=== PATIENT | male | born 1940 | race Hispanic/Latino ===

== ENCOUNTER 2021-07-04 00:11 | Emergency (ER) | payer MEDICARE, OTHER ==
[~2021-07-04] VITALS: Ht 167.6 cm; Wt 112.0 kg
[2021-07-04 01:16] LABS: BASOPHILS % (AUTO) 0.6 % (0.0-5.0); EOSINOPHILS % (AUTO) 3.1 % (0.0-8.0); HEMATOCRIT 44.4 % (42-54); LYMPHOCYTES % (AUTO) 13.6 % (21.0-51.0); MEAN CORPUSCULAR HEMOGLOBIN 32.4 pg (27.0-33.0); MEAN CORPUSCULAR HGB CONC 32.2 g/dL (32.0-36.0); MEAN CORPUSCULAR VOLUME 100.5 fL (79-99); MONOCYTES % (AUTO) 8.5 % (3.0-13.0); NEUTROPHILS % (AUTO) 73.8 % (40.0-77.0); PLATELET COUNT (AUTO) 160 K/uL (130-400); RED BLOOD CELL COUNT(AUTO) 4.42 MIL/uL (4.50-6.20); RED CELL DISTRIBUTION WIDTH 12.6 % (11.0-15.5)
[2021-07-04 01:26] LABS: CREATININE 1.3 mg/dL (0.5-1.5); POTASSIUM 4.3 mmol/L (3.5-5.1)
[2021-07-04 01:30] LABS: ALBUMIN 3.6 g/dL (3.5-5.0); BILIRUBIN,TOTAL 0.6 mg/dL (0.2-1.0); TOTAL PROTEIN, SERUM 7.8 g/dL (6.0-8.3)
[2021-07-04] MEDS ORDERED: CEFTRIAXONE 1G VIAL ONE (01:57)
[2021-07-04] MEDS ORDERED: SOLU-MEDROL 125MG VIAL IVP ONE (02:00)
[2021-07-04] MEDS ORDERED: CEFTRIAXONE 1G VIAL IVP ONE (02:00)
[2021-07-04 02:43] VITALS: BP 125/67
[2021-07-04] MEDS ORDERED: LEVO750T46 PO (02:59)
[2021-07-04] MEDS ORDERED: AZITHROMYCIN 250 MG TABLET PO ONE (03:00)
== END 2021-07-04 03:47 | disposition home or self-care (01) ==
LOC: EDH 00:11
DX: J44.1 Chronic obstructive pulmonary disease with (acute) exacerbation (principal); J18.9 Pneumonia, unspecified organism; I10 Essential (primary) hypertension; E11.40 Type 2 diabetes mellitus with diabetic neuropathy, unspecified
CPT/HCPCS: 36415; 71045; 80053; 84484; 85025; 96374; 96375; 99284; J0696; J2930

== ENCOUNTER 2024-02-08 20:32 | Emergency (ER) | payer OTHER ==
[~2024-02-08] VITALS: Ht 165.1 cm; Wt 99.8 kg
[~2024-02-08 20:32] MED LIST: LEVO750T68 PO
[2024-02-08 20:33] VITALS: BP 101/68; PULSE 86; RESP 18
[2024-02-08 21:22] LABS: BASOPHILS # (AUTO) 0.05 K/uL (0.00-0.20); BASOPHILS % (AUTO) 0.7 % (0.0-5.0); EOSINOPHILS # (AUTO) 0.43 K/uL (0.00-0.70); HEMATOCRIT 48.7 % (42-54); IMMATURE GRANULOCYTE ABSOLUTE 0.02 K/uL (0-1); LYMPHOCYTES # (AUTO) 1.4 K/uL (1.0-4.8); LYMPHOCYTES % (AUTO) 19.9 % (21.0-51.0); MEAN CORPUSCULAR HEMOGLOBIN 33.3 pg (27.0-33.0); MEAN CORPUSCULAR HGB CONC 33.3 g/dL (32.0-36.0); MONOCYTES # (AUTO) 0.6 K/uL (0.1-1.0); MONOCYTES % (AUTO) 8.8 % (3.0-13.0); NEUTROPHILS # (AUTO) 4.6 K/uL (1.8-7.7); NEUTROPHILS % (AUTO) 64.3 % (40.0-77.0); PLATELET COUNT (AUTO) 156 K/uL (130-400); RED BLOOD CELL COUNT(AUTO) 4.87 MIL/uL (4.50-6.20); RED CELL DISTRIBUTION WIDTH 12.5 % (11.0-15.5); WHITE BLOOD COUNT (AUTO) 7.2 K/uL (4.8-10.8)
[2024-02-08 21:36] LABS: INR 1.06 (0.85-1.15); PROTHROMBIN TIME 12.4 SEC (9.6-11.6)
[2024-02-08 21:38] LABS: PARTIAL THROMBOPLASTIN TIME 30.7 SEC (26.3-35.5)
[2024-02-08 21:45] LABS: CREATININE 1.4 mg/dL (0.5-1.3); POTASSIUM 3.9 mmol/L (3.5-5.1)
[2024-02-08 21:49] LABS: ALBUMIN 3.8 g/dL (3.5-5.0); BILIRUBIN,TOTAL 0.6 mg/dL (0.2-1.0); MAGNESIUM 1.6 mg/dL (1.80-2.40); TOTAL PROTEIN, SERUM 7.8 g/dL (6.0-8.3)
[2024-02-08 21:52] LABS: B-TYPE NATRIURETIC PEPTIDE 43 pg/mL (0-100)
== END 2024-02-09 01:14 | disposition left against medical advice (07) ==
LOC: EDH 20:32
DX: I48.91 Unspecified atrial fibrillation (principal); J44.9 Chronic obstructive pulmonary disease, unspecified; E11.9 Type 2 diabetes mellitus without complications; I10 Essential (primary) hypertension
CPT/HCPCS: 36415; 71045; 80053; 82550; 83735; 83880; 84484; 85025; 85610; 85730; 93005

== ENCOUNTER 2024-06-25 11:07 | Emergency (ER) | payer OTHER ==
[~2024-06-25] VITALS: Ht 165.1 cm; Wt 98.4 kg
[2024-06-25 12:15] LABS: BASOPHILS # (AUTO) 0.03 K/uL (0.00-0.20); BASOPHILS % (AUTO) 0.3 % (0.0-5.0); EOSINOPHILS # (AUTO) 0.07 K/uL (0.00-0.70); EOSINOPHILS % (AUTO) 0.8 % (0.0-8.0); HEMATOCRIT 48.3 % (42-54); IMMATURE GRANULOCYTE ABSOLUTE 0.02 K/uL (0-1); LYMPHOCYTES # (AUTO) 0.3 K/uL (1.0-4.8); LYMPHOCYTES % (AUTO) 3.5 % (21.0-51.0); MEAN CORPUSCULAR HEMOGLOBIN 32.1 pg (27.0-33.0); MEAN CORPUSCULAR HGB CONC 32.7 g/dL (32.0-36.0); MEAN CORPUSCULAR VOLUME 98.2 fL (79-99); MONOCYTES # (AUTO) 0.4 K/uL (0.1-1.0); NEUTROPHILS # (AUTO) 8.5 K/uL (1.8-7.7); NEUTROPHILS % (AUTO) 91.2 % (40.0-77.0); PLATELET COUNT (AUTO) 151 K/uL (130-400); RED BLOOD CELL COUNT(AUTO) 4.92 MIL/uL (4.50-6.20); RED CELL DISTRIBUTION WIDTH 12.4 % (11.0-15.5); WHITE BLOOD COUNT (AUTO) 9.3 K/uL (4.8-10.8)
[2024-06-25 12:19] LABS: CREATININE 1.3 mg/dL (0.5-1.3); MAGNESIUM 1.5 mg/dL (1.80-2.40); POTASSIUM 4.2 mmol/L (3.5-5.1)
[2024-06-25 12:38] LABS: B-TYPE NATRIURETIC PEPTIDE 43 pg/mL (0-100)
[2024-06-25] MEDS ORDERED: MAGN300C PO (14:26)
[2024-06-25] MEDS: MAGNESIUM OXIDE 400 MG TABLET ONE (14:46)
[2024-06-25] MEDS: MAGNESIUM OXIDE 400 MG TABLET PO ONE (14:46)
[2024-06-25 14:52] VITALS: BP 123/76; PULSE 93; RESP 20; TEMP 97.9; O2SAT 98
== END 2024-06-25 14:53 | disposition home or self-care (01) ==
LOC: EDH 11:07
DX: I48.91 Unspecified atrial fibrillation (principal); E83.42 Hypomagnesemia; E86.0 Dehydration; E11.65 Type 2 diabetes mellitus with hyperglycemia; J44.9 Chronic obstructive pulmonary disease, unspecified; E11.40 Type 2 diabetes mellitus with diabetic neuropathy, unspecified; I10 Essential (primary) hypertension
CPT/HCPCS: 36415; 71045; 80048; 83735; 83880; 84484; 85025; 93005

== ENCOUNTER 2024-08-22 08:12 | Day surgery (SDC) | payer OTHER ==
[2024-08-20 13:44] LABS: BASOPHILS # (AUTO) 0.05 K/uL (0.00-0.20); BASOPHILS % (AUTO) 0.6 % (0.0-5.0); EOSINOPHILS % (AUTO) 3.7 % (0.0-8.0); HEMATOCRIT 41.3 % (42-54); IMMATURE GRANULOCYTE ABSOLUTE 0.05 K/uL (0-1); LYMPHOCYTES # (AUTO) 1.7 K/uL (1.0-4.8); LYMPHOCYTES % (AUTO) 20.6 % (21.0-51.0); MEAN CORPUSCULAR HEMOGLOBIN 33.2 pg (27.0-33.0); MEAN CORPUSCULAR HGB CONC 32.4 g/dL (32.0-36.0); MEAN CORPUSCULAR VOLUME 102.2 fL (79-99); MONOCYTES # (AUTO) 0.6 K/uL (0.1-1.0); MONOCYTES % (AUTO) 7.7 % (3.0-13.0); NEUTROPHILS # (AUTO) 5.4 K/uL (1.8-7.7); NEUTROPHILS % (AUTO) 66.8 % (40.0-77.0); PLATELET COUNT (AUTO) 206 K/uL (130-400); RED BLOOD CELL COUNT(AUTO) 4.04 MIL/uL (4.50-6.20); RED CELL DISTRIBUTION WIDTH 13.2 % (11.0-15.5); WHITE BLOOD COUNT (AUTO) 8.1 K/uL (4.8-10.8)
[2024-08-20 13:52] LABS: CREATININE 1.4 mg/dL (0.5-1.3); POTASSIUM 4.7 mmol/L (3.5-5.1)
[2024-08-20 13:53] LABS: INR 1.37 (0.85-1.15); PROTHROMBIN TIME 14.5 SEC (9.6-11.6)
[2024-08-20 13:56] VITALS: BP 127/59; PULSE 74; RESP 15; TEMP 97.2
[2024-08-20 14:20] LABS: ADD UA MICROSCOPIC YES; APPEARANCE,URINE CLEAR (CLEAR); BILIRUBIN,URINE NEGATIVE (NEGATIVE); COLOR,URINE LIGHT-YELLOW (YELLOW); GLUCOSE, URINE (UA) >=1000 mg/dL (NEGATIVE); KETONES,URINE NEGATIVE (NEGATIVE); LEUKOCYTE ESTERASE ,URINE NEGATIVE Leu/uL (NEGATIVE); NITRATE,URINE NEGATIVE (NEGATIVE); OCCULT BLOOD,URINE NEGATIVE (NEGATIVE); PROTEIN,URINE NEGATIVE (NEGATIVE); UROBILINOGEN,URINE 0.2 mg/dL (0.2-1.0)
[2024-08-20 14:23] LABS: B-TYPE NATRIURETIC PEPTIDE 105 pg/mL (0-100)
[2024-08-20 14:37] LABS: MUCUS,URINE RARE LPF (None Seen); RBC,URINE 0-1 /HPF (0-1); SQUAMOUS EPITHELIAL CELL,UR RARE /HPF (0-2)
[~2024-08-22] VITALS: Ht 165.1 cm; Wt 100.6 kg
[2024-08-22] VITALS (7 sets, daily range): BP systolic 87–139; BP diastolic 47–79; PULSE 53–72; RESP 14–16; TEMP 97.5–97.8
[~2024-08-22 08:12] MED LIST changes: +ALBUHFA IH; +ASCO500T20 PO; +ATOR40TA71 PO; +BETA1TAB18 PO; +CHOL100020 PO; +DRON400T7 PO; +DULO60CA64 PO; +EMPA25TA PO; +FLUT1BLS9 IH; +INSU100I47 SQ; +INSU3INS3 SQ; -LEVO750T68 PO; +LORA10TA7 PO; +LOSA100T59 PO; +MEMA10TA21 PO; +METO50TA18 PO; +RIVA20TA PO; +ZINC220T4 PO
--- NOTE | 2024-08-22 09:28 | EKG ---
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 : 1940 Requested By: RASHIDA ACOSTA Order Number: [id number] Reading MD: Ananda Wild Measurements Intervals [place] Rate: 56 P: 0 CO: 0 QRS: -64 QRSD: 111 T: 14 QT: 476 QTc: 462 Interpretive Statements Atrial fibrillation Left anterior fascicular block Low voltage, extremity and precordial leads Consider anterior infarct Compared to ECG 06/25/2024 12:06:23 Left anterior fascicular block now present Low QRS voltage now present Myocardial infarct finding still present Electronically Signed On 08-22-2024 16:15:55 COOL ROOFING INSTALLER by Ananda Wild Please click the below link to view image of tracing.
[2024-08-22] MEDS ORDERED: proPOFol 10 MG/ML 20ML VIAL IV ONE (09:49)
--- NOTE | 2024-08-22 09:52 | NUR ---
CALLED SENIOR INTEGRATION ARCHITECT TO RELAY MESSAGE THAT PT IS BRADYCARDIC AND BLOOD PRESSURE IS RUNNING IN THE 80'S 90'S SYSTOLIC. DR. ACOSTA STATED HE WILL COME SEE THE PT AND ASSESS.
--- NOTE | 2024-08-22 10:15 | NUR ---
DR. ACOSTA CAME TO ASSESS PT AND SPEAK WITH HIM. DR. ACOSTA SPOKE WITH BARRETT MIDDLETON ABOUT PT BEING BRADYCARDIC AND HYPOTENSIVE. ORDER FOR NS 500 ML BOLUS GIVEN TO ME. PT DENIES ANY COMPLAINTS.
[2024-08-22] MEDS: 0.9%NACL 1000ML 1,000 ML IV ONE (10:59)
--- NOTE | 2024-08-22 11:28 | NUR ---
[address] ACOSTA
--- NOTE | 2024-08-22 11:31 | NUR ---
DR. ACOSTA FINISHED WITH ARVIND AT THIS TIME VSS NAD.
--- NOTE | 2024-08-22 11:32 | NUR ---
PT SYNCHRONIZED CARDIOVERTED [address] DAVE WELSH VSBen PT REMAINS IN ATRIAL FIBRILLATION WITH SLOW RESPONSE.
--- NOTE | 2024-08-22 11:33 | NUR ---
PT SYNCHRONIZED CARDIOVERTED [address]ND [address]. DAVE WELSH. PT CONTINUES TO REMAIN IN ATRIAL FIBRILLATION WITH SLOW VENTRICULAR RESPONSE.
--- NOTE | 2024-08-22 11:34 | NUR ---
PT SYNCHRONIZED CARDIOVERTED FOR THE 3RD TIME AT [address] ACOSTA NAD VSS PT REMAINS IN ATRIAL FIBRILLATOIN WITH SLOW VENTRICULAR RESPONSE. SPOUSE IN TO SPEAK WITH DR. ACOSTA ABOUT FURTHER PLAN FOR ATRIAL FIBRILLATION
--- NOTE | 2024-08-22 14:38 | NUR ---
1126 SEDATION STARTED BY SPANISH MOSS PICKER.
--- NOTE | 2024-08-23 14:25 | EKG ---
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
[2024-09-08] MEDS ORDERED: ASCO500T20 PO (23:33)
[2024-09-08] MEDS ORDERED: METF-444 PO (23:33)
[2024-09-08] MEDS ORDERED: ZINC220T4 PO (23:33)
[2024-09-08] MEDS ORDERED: DULO60CA64 PO (23:33)
[2024-09-08] MEDS ORDERED: MEMA10TA21 PO (23:33)
[2024-09-08] MEDS ORDERED: LORA10TA7 PO (23:33)
[2024-09-08] MEDS ORDERED: ATOR10 PO (23:33)
[2024-09-08] MEDS ORDERED: AMIO200T68 PO (23:33)
[2024-09-08] MEDS ORDERED: BETA1TAB18 PO (23:33)
[2024-09-08] MEDS ORDERED: BENZ-39 PO (23:33)
[2024-09-08] MEDS ORDERED: ERGO400C PO (23:33)
[2024-09-08] MEDS ORDERED: INSU3INS3 SQ (23:35)
[2024-09-08] MEDS ORDERED: INSU100I3 SQ (23:36)
--- NOTE | 2024-09-23 15:00 | HMCSR ---
APPROVED REPORT EXAM: Transesophageal echocardiogram with color flow Doppler. INDICATION ICD: Atrial Flutter Reason For Test : Rule out Intracardiac Thrombus. PROCEDURE After obtaining informed consent, patient underwent transesophageal echo in the Day [facility] Room 14 . Type of Sedation: Please refer to medication administration record. Sedation was administered by Please refer to medication administration record. . Sedation was achieved with Please refer to medication administration record. intravenously. Transesophageal probe was inserted and advanced into esophagus without difficulty by Bryan Arana MD . ARVIND was performed and images were obtained, probe was removed without complications. Prior to cardioversion, of Please refer to medication administration record. was administered. Synchronized Cardioversion attempted: Unsuccessful Synchronized Cardioversion acheived with 200 Joules after 3 attempt(s). Rhythm following Synchronized Cardioversion: A-Flutter Throughout the procedure, the blood pressure, pulse oximetry, cardiac rhythm, and rate were monitored . Left Ventricle Left ventricular cavity size is normal. Atria The left atrium is severely dilated. Spontaneous contrast noted in left atrium. No left atrial append age thrombus noted. The right atrium is severely dilated. Tricuspid Valve Tricuspid valve leaflets open well. Great Vessels The aortic root is normal in size. Pericardium No pericardial effusion.
== END 2024-08-22 12:40 | disposition home or self-care (01) ==
LOC: DAH 08:12
PROVIDERS: ATTEND Internal Medicine Interventional Cardiology
DX: I48.11 Longstanding persistent atrial fibrillation (principal); I44.4 Left anterior fascicular block; I10 Essential (primary) hypertension; E78.00 Pure hypercholesterolemia, unspecified; I25.10 Atherosclerotic heart disease of native coronary artery without angina pectoris; E11.43 Type 2 diabetes mellitus with diabetic autonomic (poly)neuropathy; E11.59 Type 2 diabetes mellitus with other circulatory complications; I25.2 Old myocardial infarction; M79.605 Pain in left leg; M79.604 Pain in right leg; R09.89 Other specified symptoms and signs involving the circulatory and respiratory systems; I65.23 Occlusion and stenosis of bilateral carotid arteries; Z79.01 Long term (current) use of anticoagulants; Z79.4 Long term (current) use of insulin; Z79.899 Other long term (current) drug therapy
CPT/HCPCS: 80048; 83880; 85025; 85610; 85730; 81001; 36415; 92960; 82948; 93325; 93312; 93005 ×2; J7030; J2704; A4620; A4215; A4223 ×3; A7002; A4222; A4221; A4663; A4216; A4606; J3490

== ENCOUNTER 2024-10-17 06:37 | Day surgery (SDC) | payer OTHER ==
[2024-10-15 13:41] LABS: BASOPHILS # (AUTO) 0.06 K/uL (0.00-0.20); BASOPHILS % (AUTO) 0.9 % (0.0-5.0); EOSINOPHILS # (AUTO) 0.11 K/uL (0.00-0.70); EOSINOPHILS % (AUTO) 1.6 % (0.0-8.0); HEMATOCRIT 33.1 % (42-54); IMMATURE GRANULOCYTE ABSOLUTE 0.02 K/uL (0-1); LYMPHOCYTES # (AUTO) 0.9 K/uL (1.0-4.8); LYMPHOCYTES % (AUTO) 13.9 % (21.0-51.0); MEAN CORPUSCULAR HEMOGLOBIN 28.9 pg (27.0-33.0); MEAN CORPUSCULAR HGB CONC 28.4 g/dL (32.0-36.0); MEAN CORPUSCULAR VOLUME 101.8 fL (79-99); MONOCYTES # (AUTO) 0.7 K/uL (0.1-1.0); NEUTROPHILS # (AUTO) 4.9 K/uL (1.8-7.7); NEUTROPHILS % (AUTO) 73.3 % (40.0-77.0); PLATELET COUNT (AUTO) 242 K/uL (130-400); RED BLOOD CELL COUNT(AUTO) 3.25 MIL/uL (4.50-6.20); RED CELL DISTRIBUTION WIDTH 16.8 % (11.0-15.5); WHITE BLOOD COUNT (AUTO) 6.7 K/uL (4.8-10.8)
[2024-10-15 13:44] VITALS: BP 98/48; PULSE 80; RESP 13; TEMP 99.3
[2024-10-15 13:50] LABS: POTASSIUM 4.2 mmol/L (3.5-5.1)
[2024-10-15 13:51] LABS: CREATININE 1.5 mg/dL (0.5-1.3)
[2024-10-15 13:53] LABS: INR 1.47 (0.85-1.15); PROTHROMBIN TIME 15.8 SEC (9.6-11.6)
[2024-10-15 13:55] LABS: PARTIAL THROMBOPLASTIN TIME 35.9 SEC (26.3-35.5)
[2024-10-15 14:04] LABS: B-TYPE NATRIURETIC PEPTIDE 101 pg/mL (0-100)
--- NOTE | 2024-10-15 15:49 | HMCIMG ---
CHEST 1VW REASON: PRE OP COMPARISON: 09/08/2024 FINDINGS: Single view of the chest was obtained. Lungs are clear. Heart size is normal. There is no pulmonary vascular congestion. Mediastinum and bony thorax appear unremarkable. IMPRESSION: 1. Normal single view chest x-ray.
--- NOTE | 2024-10-16 13:01 | NUR ---
REPORT REPORTED PT/PTT/CBC/BMP TO DR ACOSTA. OK TO PROCEED
[~2024-10-17] VITALS: Ht 165.1 cm; Wt 104.1 kg
[~2024-10-17 06:37] MED LIST changes: +ALBU18HF7 IH; -ALBUHFA IH; +AMIO200T68 PO; +ASCO500C18 PO; -ASCO500T20 PO; +ATOR10 PO; -ATOR40TA71 PO; +BISA-151 PO; -CHOL100020 PO; +CHOL100040 PO; -DRON400T7 PO; +FAMO20TA8 PO; +FERR-72 PO; -FLUT1BLS9 IH; +FURO20TA4 PO; +INSU100I3 SQ; -INSU100I47 SQ; -LOSA100T59 PO; +LOSA50TA64 PO; -METO50TA18 PO; +TIOT18CA3 IH; +ZINC PO; -ZINC220T4 PO
[2024-10-17 06:40] VITALS: BP 115/56; PULSE 94; RESP 18; TEMP 97.5
[2024-10-17] MEDS ORDERED: ePHEDrine SULFate 50 MG/ML AMPULE ONE (07:33)
[2024-10-17] MEDS ORDERED: proPOFol 10 MG/ML 20ML VIAL IV ONE (07:33)
[2024-10-17] MEDS ORDERED: phenylEPHRINE HCL 10 MG/ML 1ML VIAL IV ONE (07:34)
[2024-10-17] MEDS ORDERED: LIDOCAINE PF 100MG/5ML (2%) SYRINGE 5ML ONE (07:34)
--- NOTE | 2024-10-17 08:02 | EKG ---
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
[2024-10-17 08:55] VITALS: BP 90/45; PULSE 64; RESP 12; TEMP 97.4
[2024-10-17 09:10] VITALS: BP 101/51; PULSE 56; RESP 13
[2024-10-17 09:25] VITALS: BP 118/60; PULSE 57; RESP 14
[2024-10-17 09:40] VITALS: BP 115/57; PULSE 63; RESP 14
[2024-10-17 09:55] VITALS: BP 117/54; PULSE 66; RESP 16; TEMP 97.4
[2024-10-17] MEDS: 0.9%NACL 1000ML 1,000 ML IV SCH (10:07)
--- NOTE | 2024-10-17 11:09 | EKG ---
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
--- NOTE | 2024-10-17 11:09 | EKG ---
[facility] Test Date: 2024-10-17 Test Time: 09:48:12 Pat Name: APARNA EASLEY Department: [facility] Room: Gender: M High Man: [id number] : 1940 Requested By: RASHIDA ACOSTA Order Number: [id number] Reading MD: Robi Pope Measurements Intervals [place] Rate: 58 P: 0 [place]: 0 QRS: -65 QRSD: 111 T: 23 QT: 472 QTc: 462 Interpretive Statements Junctional rhythm Left anterior fascicular block Low voltage, extremity leads Consider anterior infarct Compared to ECG 10/17/2024 07:39:01 Junctional rhythm now present Low QRS voltage now present Atrial fibrillation no longer present Myocardial infarct finding still present Electronically Signed On 10-18-2024 07:59:39 INDUSTRIAL HIRE SALES ASSISTANT by Robi Pope Please click the below link to view image of tracing.
--- NOTE | 2024-10-17 23:46 | PR ---
PROCEDURE: Direct current cardioversion of atrial fibrillation. INDICATIONS: This is a pleasant 84-year-old gentleman who has history of atrial fibrillation. He has had an echocardiogram, which showed no thrombus and no evidence of significant left atrial dilatation. He is considered to have it for possible cardioversion. After a thorough discussion of risks, benefits, options, alternatives were discussed with he and his , both elected to proceed with DC cardioversion. He was brought in at this time for the procedure. Transesophageal echocardiogram was not obtained as his recent echocardiogram showed no evidence of thrombus or other issues. DESCRIPTION OF PROCEDURE: After informed consent was obtained as above, he was prepped for DC cardioversion. Electrocardiogram showed atrial fibrillation with a controlled ventricular response. Anesthesia was notified to provide conscious sedation with mainly propofol. After appropriate sedation was obtained, the patient received 200 joules as a single jolt of energy, which converted his rhythm into a regular rhythm, however, P waves are not obvious. Nevertheless, he went from mildly abnormal irregular rhythm to very regular rhythm. No further therapy was delivered at that time. The patient will remain on his antiarrhythmics suspect that he has sinoatrial and hopefully now that the atrial fibrillation has been controlled, the atrium will begin its activity. The above has been discussed with the family and the patient. He is likely being discharged once stable from anesthesia. There were no complications. TID: [id number] RECEIPT: [id number]
== END 2024-10-17 10:05 | disposition home or self-care (01) ==
LOC: DAH 06:37
PROVIDERS: ATTEND Internal Medicine Interventional Cardiology
DX: I48.0 Paroxysmal atrial fibrillation (principal); R06.09 Other forms of dyspnea; I10 Essential (primary) hypertension; I25.10 Atherosclerotic heart disease of native coronary artery without angina pectoris; I65.23 Occlusion and stenosis of bilateral carotid arteries; E11.43 Type 2 diabetes mellitus with diabetic autonomic (poly)neuropathy; E78.2 Mixed hyperlipidemia; J44.9 Chronic obstructive pulmonary disease, unspecified; Z86.2 Personal history of diseases of the blood and blood-forming organs and certain disorders involving the immune mechanism; Z87.891 Personal history of nicotine dependence
CPT/HCPCS: 71045; 80048; 83880; 85025; 85610; 85730; 36415; 92960; 82948; 93005 ×3; J2003; J2704; J2371; A4620; A4215; A4213; A4222; A4221; A4663; A4216; A4606; A4223 ×3; J3490

== ENCOUNTER 2024-10-28 07:23 | Day surgery (SDC) | payer OTHER ==
[~2024-10-28] VITALS: Ht 167.6 cm; Wt 104.8 kg
[2024-10-28] VITALS (9 sets, daily range): BP systolic 88–110; BP diastolic 42–62; PULSE 71–79; RESP 12–19; TEMP 97–97.6
[2024-10-28] MEDS: 0.9%NACL 1000ML 1,000 ML IV ONE (09:11)
[2024-10-28] MEDS ORDERED: proPOFol 10 MG/ML 20ML VIAL IV ONE (10:24)
== END 2024-10-28 11:40 | disposition home or self-care (01) ==
LOC: DAH 07:23 → ENDO 07:23
PROVIDERS: ATTEND Internal Medicine Gastroenterology
DX: D50.9 Iron deficiency anemia, unspecified (principal); D12.6 Benign neoplasm of colon, unspecified; K57.30 Diverticulosis of large intestine without perforation or abscess without bleeding; K44.9 Diaphragmatic hernia without obstruction or gangrene; K29.50 Unspecified chronic gastritis without bleeding; K59.00 Constipation, unspecified; E11.9 Type 2 diabetes mellitus without complications; J44.9 Chronic obstructive pulmonary disease, unspecified; I48.19 Other persistent atrial fibrillation; Z86.718 Personal history of other venous thrombosis and embolism; Z98.42 Cataract extraction status, left eye; Z98.41 Cataract extraction status, right eye; Z79.4 Long term (current) use of insulin; Z79.899 Other long term (current) drug therapy; Z53.8 Procedure and treatment not carried out for other reasons
CPT/HCPCS: 45378; 82948 ×2; J7030 ×2; J2704; A4615; A4215; A4223; A4222; A4221; A4663; A4606; J3490

== ENCOUNTER 2024-10-29 08:13 | Day surgery (SDC) | payer OTHER ==
[2024-10-29] VITALS (11 sets, daily range): BP systolic 90–125; BP diastolic 39–65; PULSE 64–74; RESP 14–18; TEMP 97.5–208.6
[~2024-10-29] VITALS: Ht 167.6 cm; Wt 99.8 kg
[~2024-10-29 08:13] MED LIST changes: -AMIO200T68 PO; -BISA-151 PO
[2024-10-29] MEDS: 0.9%NACL 1000ML 1,000 ML IV ONE (10:12)
[2024-10-29] MEDS ORDERED: proPOFol 10 MG/ML 20ML VIAL IV ONE (11:23)
--- NOTE | 2024-10-29 12:26 | NUR ---
FULL AND COMPLETE DISCHARGE INSTRUCTIONS PROVIDED BOTH VERBALLY AND IN WRITING. ALL QUESTIONS ANSWERED. VOICED UNDERSTANDING TO GI PROCEDURE AND FOLLOW UP. PIV REMOVED WITH CATHETER TIP INTACT. W/C WITH FAMILY TO POV TO HOME.
== END 2024-10-29 12:30 | disposition home or self-care (01) ==
LOC: DAH 08:13 → ENDO 08:13
PROVIDERS: ATTEND Internal Medicine Gastroenterology
DX: D50.9 Iron deficiency anemia, unspecified (principal); K57.30 Diverticulosis of large intestine without perforation or abscess without bleeding; K29.50 Unspecified chronic gastritis without bleeding; K31.89 Other diseases of stomach and duodenum; K59.00 Constipation, unspecified; D12.6 Benign neoplasm of colon, unspecified; Z86.0100 Personal history of colon polyps, unspecified; J44.9 Chronic obstructive pulmonary disease, unspecified; I48.91 Unspecified atrial fibrillation; E11.9 Type 2 diabetes mellitus without complications; Z86.718 Personal history of other venous thrombosis and embolism; Z79.4 Long term (current) use of insulin; Z98.42 Cataract extraction status, left eye; Z98.41 Cataract extraction status, right eye; Z79.01 Long term (current) use of anticoagulants; Z79.899 Other long term (current) drug therapy
CPT/HCPCS: 45378; 82948 ×2; J7030; J2704; A4215; J3490

== ENCOUNTER 2025-01-18 10:06 | Emergency (ER) | payer OTHER ==
[~2025-01-18] VITALS: Ht 165.1 cm; Wt 104.3 kg
--- NOTE | 2025-01-18 10:09 | NUR ---
REFER TO TRAUMA FLOW SHEET
[2025-01-18 10:20] VITALS: BP 118/64; PULSE 89; RESP 22; TEMP 98.7; O2SAT 93
--- NOTE | 2025-01-18 10:51 | HMCIMG ---
CT CERVICAL SPINE W/O CONTRAST HISTORY: fall TECHNIQUE: CT CERVICAL SPINE W/O CONTRAST. Sagittal and coronal images were produced. CT was performed with one or more of the following dose reduction techniques: Automated exposure control, adjustment of the mA and/or kV according to the patient's size, or use of the iterative reconstruction technique. FINDINGS: Evaluation of the cord and discs is limited with CT. No evidence of acute displaced fracture or dislocation. The lateral masses of C1 align with C2. No prevertebral soft tissue swelling. There is diffuse osteopenia degraded evaluation of the study. Multilevel degenerative changes are noted Soft tissues of the neck are grossly within normal limits. This study cannot exclude ligamentous injury. IMPRESSION: No evidence of displaced cervical spine fracture or dislocation. Correlate clinically. There is diffuse osteopenia degraded evaluation of the study. Multilevel degenerative changes are noted
--- NOTE | 2025-01-18 10:53 | HMCIMG ---
CT HEAD/BRAIN W/O CONTRAST INDICATION: fall TECHNIQUE: CT HEAD/BRAIN W/O CONTRAST. CT was performed with one or more of the following dose reduction techniques: Automated exposure control, adjustment of the mA and/or kV according to the patient's size, or use of the iterative reconstruction technique. Comparison: None FINDINGS: Cerebral atrophy seen. Nonspecific periventricular and subcortical white matters changes are noted likely representing small vessel ischemic changes. No midline shift or herniation. No extra axial collection. No acute intracranial bleed. The visualized paranasal sinuses and mastoid air cells are normally aerated. IMPRESSION: Diffuse atrophy. No acute intracranial bleed is seen. Nonspecific white matter changes
--- NOTE | 2025-01-18 10:58 | ERN ---
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 Patient reports head injury, shoulder pain, back pain, but denies any LOC, vomiting or other associated symptoms at this time. As per patient he was at home walking backwards when he tripped and fell backwards hitting the back of his head an on the floor. Patient took Xarelto this morning. Patient was assisted up by family and used his walker to get onto the car. Allergies: Coded Allergies: No Known Allergies (Unverified Allergy, Unknown, 07/04/21) Home Meds Reported Medications Duloxetine HCl (Duloxetine HCl) 60 Mg Capsule.dr, 60 MG PO DAILY, CAP 10/15/24 Famotidine (Famotidine) 20 Mg Tablet, 20 MG PO BID, TAB 10/15/24 Vit A,C & E/Lutein/Minerals (Ocuvite Tablet) 300MCG-200 Tablet, 1 EACH PO HS, TAB 10/15/24 Ascorbic Acid (Vitamin C) 500 Mg Capsule, 500 MG PO DAILY, CAP 10/15/24 Cholecalciferol (Vitamin D3) (Vitamin D3) 25 Mcg (1000 Unit) Capsule, 25 MCG PO DAILY, CAP 10/15/24 Memantine HCl (Memantine HCl) 10 Mg Tablet, 10 MG PO DAILY, TAB 10/15/24 Loratadine (Loratadine) 10 Mg Tablet, 10 MG PO DAILY, TAB 10/15/24 Losartan Potassium (Losartan Potassium) 50 Mg Tablet, 50 MG PO DAILY, TAB 10/15/24 Empagliflozin (Jardiance) 25 Mg Tablet, 12.5 MG PO DAILY, TAB 10/15/24 Insulin Aspart (Novolog Flexpen) 100 Unit/Ml (3 Ml) Insuln.pen, 5 UNITS SQ TIDMEALS, SYRINGE 10/15/24 Insulin Glargine,Hum.rec.anlog (Lantus Solostar) 100 Unit/Ml (3 Ml) Insuln.pen, 30 UNIT SQ DAILY, SYRINGE 10/15/24 [Zinc] No Conflict Check, 30 MG PO HS 10/15/24 Ferrous Sulfate (Ferrous Sulfate) 325 Mg (65 Mg Iron) Tablet, 325 MG PO HS, TAB 10/15/24 Albuterol Sulfate (Ventolin Hfa) 90 Mcg Hfa.aer.ad, 2 PUFF IH Q6HPRN PRN for SHORTNESS OF BREATH/WHEEZING, INHALER 10/15/24 Tiotropium [place] (Spiriva) 18 Mcg Cap.w.dev, 18 MCG IH HS 10/15/24 Atorvastatin Calcium (LIPITOR) 20 Mg Tab, 20 MG PO HS, TAB 10/15/24 Rivaroxaban (Xarelto) 20 Mg Tablet, 20 MG PO HS, TAB 10/15/24 Furosemide (Furosemide) 20 Mg Tablet, 20 MG PO HS, TAB 10/15/24 Past Medical History Past Medical History: A-Fib, Diabetes-Type II, High Cholesterol, Hypertension Additional Past Medical Hx: NEUROPATHY Surgical History: None Review of System Dictation Constitutional: Negative for fever,chills, and weight loss Eyes: Negative for injury, pain,redness, and discharge ENT: Negative for injury,pain or swelling Cardiovascular: Negative for chest pain, palpitations, and edema Respiratory: Negative for shortness of breath, cough, and wheezing, Abdomen/GI: Negative for abdominal pain, nausea, vomiting, diarrhea, and constipation Back: Positive for back pain : Negative for injury, bleeding and discharge MS/Extremity: Negative for injury and deformity Skin: Negative for rash, and discoloration Neuro: Positive for head injury Negative for headache, weakness, numbness, tingling, and seizure Psych: Negative for suicide ideation, homicidal ideation, and hallucinations Initial Vital Sign VS Vital Signs Date Time Temp Pulse Resp B/P (MAP) Pulse Ox O2 Delivery O2 Flow Rate FiO2 01/18/25 10:09 98.8 83 22 118/64 93 Room Air 0 01/18/25 10:20 21 Physical Exam Dictation General: awake, alert, NAD Head/Face: Normocephalic, occipital tenderness Eyes: PERRL, EOMI, vision at baseline ENT: oral cavity clear, TMs clear, no signs of infection Neck: Trachea midline, supple, no nuchal rigidity Cardiovascular: RRR, normal S1/S2, No MRGs, no JVD Respiratory: CTAB, no respiratory distress, No rales or wheezes Abdomen: Soft, non-tender, non-distended, normal bowel sounds, no guarding or rebound. Skin: Warm, dry, normal turgor, no rash MS/Extremity: Pulses equal, no cyanosis, neurovascular intact, FROM Neuro: COAx4, GCS 15, strength 5/5, CN 2-12 intact, normal cerebellar exam, normal gait, Psych: Normal behavior, mood, and affect normal Results (Laboratory/Radiology) Laboratory/Radiology Laboratory Tests Test 01/18/25 10:12 White Blood Count 10.4 K/uL (4.8-10.8) Red Blood Count 4.65 MIL/uL (4.50-6.20) Hemoglobin 13.6 g/dL (14.0-18.0) L Hematocrit 45.1 % (42-54) Mean Corpuscular Volume 97.0 fL (79-99) Mean Corpuscular Hemoglobin 29.2 pg (27.0-33.0) Mean Corpuscular Hemoglobin Concent 30.2 g/dL (32.0-36.0) L Red Cell Distribution Width 18.1 % (11.0-15.5) H Platelet Count 173 K/uL (130-400) Mean Platelet Volume 12.0 fL (7.5-10.5) H Immature Granulocyte % (Auto) 0.5 % (0-1) Neutrophils (%) (Auto) 74.2 % (40.0-77.0) Lymphocytes (%) (Auto) 12.0 % (21.0-51.0) L Monocytes (%) (Auto) 6.6 % (3.0-13.0) Eosinophils (%) (Auto) 6.1 % (0.0-8.0) Basophils (%) (Auto) 0.6 % (0.0-5.0) Neutrophils # (Auto) 7.7 K/uL (1.8-7.7) Lymphocytes # (Auto) 1.3 K/uL (1.0-4.8) Monocytes # (Auto) 0.7 K/uL (0.1-1.0) Eosinophils # (Auto) 0.64 K/uL (0.00-0.70) Basophils # (Auto) 0.06 K/uL (0.00-0.20) Absolute Immature Granulocyte (auto 0.05 K/uL (0-1) Nucleated Red Blood Cells 0.0 % (0.0-0.19) Sodium Level 137 mmol/L (136-145) Potassium Level 4.5 mmol/L (3.5-5.1) Chloride Level 102 mmol/L (101-111) Carbon Dioxide Level 32 mmol/L (21-32) Blood Urea Nitrogen 22 mg/dL (7-18) H Creatinine 1.2 mg/dL (0.5-1.3) Glomerular Filtration Rate Calc 59 mL/min (>90) Random Glucose 134 mg/dL (70-105) H Total Calcium 8.8 mg/dL (8.5-10.1) Troponin I High Sensitivity 7 ng/L (4-75) B-Type Natriuretic Peptide 25 pg/mL (0-100) Labs Reviewed?: Yes EKG Comment: EKG 01/18/2025 time 11:05 a.m. ventricular rate 86, atrial fibrillation, QRS D 106, QT 385. CA infarct, old, consider anterior infarct. No STEMI ED Course ED Course Orders Procedure Category Date Status Time Chest 1vw RAD 01/18/25 Taken 10:10 Ct Head/Brain W/O CT 01/18/25 Resulted Contrast 10:10 Ct Cervical Spine W/O CT 01/18/25 Resulted Contrast 10:10 Pelvis 1-2vws RAD 01/18/25 Taken 10:10 12 Lead Ekg Tracing- EKG 01/18/25 Logged Technical 10:55 Basic Metabolic Panel LAB 01/18/25 Complete 10:55 Cbc With Differential LAB 01/18/25 In Process 10:55 Troponin I High LAB 01/18/25 Complete Sensitivity 10:55 B-Type Natriuretic LAB 01/18/25 In Process Peptide 10:55 Ketorolac PHA 01/18/25 Complete Tromethamine 15mg/Ml 11:30 Morphine 2mg Syg PHA 01/18/25 Complete (Morphine 2mg Syg) 11:30 Current Medications Medications (Trade) Dose Ordered Sig/Mars Route PRN Reason Start Time Stop Time Status Last Admin Dose Admin Ketorolac Tromethamine (toRADol) 15 mg ONCE ONCE IV 01/18/25 11:30 01/18/25 11:31 DC 01/18/25 11:38 Morphine Sulfate (morPHINE 2MG SYG) 2 mg ONCE ONCE IVP 01/18/25 11:30 01/18/25 11:31 DC 01/18/25 11:38 Vital Signs Date Time Temp Pulse Resp B/P (MAP) Pulse Ox O2 Delivery O2 Flow Rate FiO2 01/18/25 10:20 98.8 89 22 118/64 93 Room Air* 0 21 01/18/25 10:09 98.8 83 22 118/64 93 Room Air 0 Medical Decision Making MDM MDM: Differential diagnosis: fall, Head injury, back pain Rationale: Tests considered and ordered secondary to shared decision making include: labs, ECG and radiology Risk of complication and/or morbidity or mortality of patient management: None Medications-Per medication reconciliation Need for hospitalization: Patient does not meet criteria for hospitalization. Need for emergency major/minor surgery: No There are no social concerns with this patient. Prescription drug management Prescriptions will include symptomatic care I independently interpreted the test that were performed, results were reviewed by me and considered findings on radiology if ordered. DX & DISP Disposition: Discharge Departure Impression: Primary Impression: Fall Additional Impression: Head injury Condition: Stable Referrals: LILY FREY MD (PCP) ILYA DELANEY MD Jan 18, 2025 10:58
[2025-01-18 11:16] LABS: BASOPHILS # (AUTO) 0.06 K/uL (0.00-0.20); BASOPHILS % (AUTO) 0.6 % (0.0-5.0); EOSINOPHILS # (AUTO) 0.64 K/uL (0.00-0.70); EOSINOPHILS % (AUTO) 6.1 % (0.0-8.0); HEMATOCRIT 45.1 % (42-54); IMMATURE GRANULOCYTE ABSOLUTE 0.05 K/uL (0-1); LYMPHOCYTES # (AUTO) 1.3 K/uL (1.0-4.8); MEAN CORPUSCULAR HEMOGLOBIN 29.2 pg (27.0-33.0); MEAN CORPUSCULAR HGB CONC 30.2 g/dL (32.0-36.0); MONOCYTES # (AUTO) 0.7 K/uL (0.1-1.0); MONOCYTES % (AUTO) 6.6 % (3.0-13.0); NEUTROPHILS # (AUTO) 7.7 K/uL (1.8-7.7); NEUTROPHILS % (AUTO) 74.2 % (40.0-77.0); PLATELET COUNT (AUTO) 173 K/uL (130-400); RED BLOOD CELL COUNT(AUTO) 4.65 MIL/uL (4.50-6.20); RED CELL DISTRIBUTION WIDTH 18.1 % (11.0-15.5); WHITE BLOOD COUNT (AUTO) 10.4 K/uL (4.8-10.8)
[2025-01-18 11:17] LABS: CREATININE 1.2 mg/dL (0.5-1.3); POTASSIUM 4.5 mmol/L (3.5-5.1)
[2025-01-18] MEDS: morPHINE 2 MG SYG IVP ONE (11:38)
[2025-01-18] MEDS: ketOROlac 15MG/ML VIAL (15MG/ML) IV ONE (11:38)
[2025-01-18 12:28] LABS: B-TYPE NATRIURETIC PEPTIDE 25 pg/mL (0-100)
--- NOTE | 2025-01-18 13:03 | EKG ---
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
--- NOTE | 2025-01-18 15:19 | HMCIMG ---
CHEST 1VW HISTORY: Status post fall COMPARISON: 10/15/2024 FINDINGS: A frontal projection of the chest was obtained. No acute pulmonary infiltrates is seen. The heart is enlarged. Degenerative changes are seen. Prominent interstitial markings are seen. No evidence of aortic calcification is seen. IMPRESSION: 1. No acute pulmonary infiltrate is seen.
--- NOTE | 2025-01-18 15:19 | HMCIMG ---
PELVIS 1-2VWS HISTORY: Status post fall COMPARISON: None TECHNIQUE: Frontal projection of the pelvis was obtained. Findings: There are bilateral hip joint space narrowing. There is no acute displaced fracture or dislocation. Degenerative changes are seen. IMPRESSION: 1. Findings as described above.
== END 2025-01-18 13:20 | disposition home or self-care (01) ==
LOC: EDH 10:06
DX: S09.8XXA Other specified injuries of head, initial encounter (principal); E11.9 Type 2 diabetes mellitus without complications; E78.00 Pure hypercholesterolemia, unspecified; I10 Essential (primary) hypertension; I21.9 Acute myocardial infarction, unspecified; J44.9 Chronic obstructive pulmonary disease, unspecified; Z79.4 Long term (current) use of insulin; Z79.84 Long term (current) use of oral hypoglycemic drugs; Z79.899 Other long term (current) drug therapy; W18.39XA Other fall on same level, initial encounter; Y93.89 Activity, other specified; Y92.89 Other specified places as the place of occurrence of the external cause; Y99.8 Other external cause status
CPT/HCPCS: 99285; 70450; 96374; 71045; 96375; 84484; 80048; 83880; 85025; 36415; 72170; 72125; 93005; J1885; J2270